=== PATIENT | male | born 1970 | race Two or more races ===

== ENCOUNTER 2024-12-16 11:30 | Emergency (ER) | payer OTHER ==
[~2024-12-16] VITALS: Ht 165.1 cm; Wt 67.3 kg
[2024-12-16 13:15] VITALS: PULSE 80; RESP 16; O2SAT 100
--- NOTE | 2024-12-16 15:56 | ED.PDOC ---
GI ASSESSMENT HPI Comments 54Y M with PMHx DM, HTN, and hemorrhoids presents to ED for chief complaint rectal bleeding x1week with constipation. LBM either yesterday or this morning. Pt states he has been seeing blood in his stool for the last week. Pt had colonoscopy performed 2 years ago. Per pt, results of colonoscopy were negative. No other symptoms reported. Chief Complaint: GI Bleed Time Seen by MD: 15:20 Primary Care Provider: NA Reviewed Notes: Nurses Notes, Medications, Allergies Allergies: Coded Allergies: NO KNOWN ALLERGIES (Unverified , 12/16/24) Home Meds Active Scripts Polyethylene Glycol 3350 (Miralax Mix-in [place]) 17 Gm Pow, 17 GM PO DAILY for 14 Days, #238 GM Prov:JASMEET GRISSOM MD 12/16/24 Information Source: Patient Mode of Arrival: Ambulatory Timing: Weeks Duration: Intermittent Quality: None Vomitus: None Stool: Hemorrhoids, Blood Streaked Severity: Mild Recent: None Recent Hx of: None Pain Location: None Modifying Factors: Nothing Associated sign and symptoms: Blood in Stool Past Medical History PAST MEDICAL HISTORY: DM, HTN Past Medical History (Other): hemorrhoids Surgical History: Denies all surgeries Family History Family History: Unknown Social History Smoker: Non-Smoker Alcohol: Denies ETOH Use Drugs: Denies Drug Use Lives In: Home Constitutional: denies: chills, diaphoresis, fatigue, fever, malaise, sweats, weakness, others EENTM: denies: blurred vision, double vision, ear bleeding, ear discharge, ear drainage, ear pain, ear ringing, eye pain, eye redness, hearing loss, mouth pain, mouth swelling, nasal discharge, nose bleeding, nose congestion, nose pa in, photophobia, tearing, throat pain, throat swelling, voice changes, others Respiratory: denies: cough, hemoptysis, orthopnea, SOB at rest, shortness of breath, SOB with excertion, stridor, wheezing, others Cardiovascular: denies: chest pain, dizzy spells, diaphoresis, Dyspnea on exertion, edema, irregular heart beat, left arm pain, lightheadedness, palpitations, PND, syncope, others Gastrointestinal: reports: constipated, rectal bleeding; denies: abdomen distended, abdominal pain, blood streaked bowels, diarrhea, dysphagia, difficulty swallowing, hematemesis, melena, nausea, poor appetite, poor fluid intake, rectal pain, vomiting, others Genitourinary: denies: burning, dysuria, flank pain, frequency, hematuria, incontinence, penile discharge, penile sore, pain, testicle pain, testicle swelling, urgency, others Neurological: denies: dizziness, fainting, headache, left sided numbness, left sided weakness, numbness, paresthesia, pre-existing deficit, right sided numbness, right sided weakness, seizure, speech problems, tingling, tremors, weakness, others Musculoskeletal: denies: back pain, gout, joint pain, joint swelling, muscle pain, muscle stiffness, neck pain, others Integumetry: denies: bruises, change in color, change in hair/nails, dryness, laceration, lesions, lumps, rash, wounds, others Allergic/Immunocompromised: denies: Difficulty Healing, Frequent Infections, Hives, Itching, others Hematologic/Lymphatic: denies: anemia, blood clots, easy bleeding, easy bruising, swollen glands, others Endocrine: denies: excessive hunger, excessive sweating, excessive thirst, excessive urination, flushing, intolerance to cold, intolerance to heat, unexplained weight gain, unexplained weight loss, others Psychiatric: denies: anxiety, bipolar disorder, depression, hopeless, panic disorder, schizophrenia, sleepless, suicidal, others All Other Systems: Reviewed and Negative Physical Exam General Appearance: No Apparent Distress, Normal HEENT: Normal ENT Inspection, Pharynx Normal, TMs Normal Neck: Full Range of Motion, Non-Tender, Normal, Normal Inspection Respiratory: Chest Non-Tender, Lungs Clear, No Accessory Muscle Use, No Respiratory Distress, Normal Breath Sounds Cardiovascular: No Edema, No JVD, No Murmur, No Gallop, Normal Peripheral Pulses, Regular Rate/Rhythm Breast Exam: Deferred Gastrointestinal: No Organomegaly, Non Tender, No Pulsatile Mass, Normal Bowel Sounds, Soft Genitalia: Deferred Pelvic: Deferred Rectal: Other (Multiple external hemorrhoids with dried blood, no active bleeding, no fissures, brown stool on HUS[place]IN) Extremities: No calf tenderness, Normal capillary refill, Normal inspection, Normal range of motion, Non-tender, No pedal edema Musculoskeletal : Apperance: Normal Neurologic: Alert, skilled nursing case manager II-XII nml as Tested, No Motor Deficits, Normal Affect, Normal Mood, No Sensory Deficits Cerebellar Function: Normal Reflexes: Normal Skin: Dry, Normal Color, Warm Lymphatic: No Adenopathy Was a procedure done? Was a procedure done?: No GI differential Dx Differential Diagnosis: Other (Internal hemorrhoid, external hemorrhoid, thrombosed hemorrhoid, anal fissure, rectal abscess, upper GI bleed, lower GI bleed, hemorrhagic shock) X-Ray, Labs, Meds, VS Vital Signs Date Time Temp Pulse Resp B/P (MAP) Pulse Ox O2 Delivery O2 Flow Rate FiO2 12/16/24 17:51 98.0 60 20 145/100 (115) 100 98.0 12/16/24 15:28 98.3 75 18 148/73 (98) 100 98.3 12/16/24 13:15 98.0 80 16 148/109 (122) 100 98.0 12/16/24 13:15 80 16 100 Room Air* 0 21 12/16/24 11:50 98.0 83 20 149/102 (118) 98 Lab Test 12/16/24 17:15 Range/Units White Blood Count 6.0 4.4-10.8 10^3/uL Red Blood Count 5.28 4.5-5.90 10^6/uL Hemoglobin 15.8 13.5-17.5 g/dL Hematocrit 45.5 41.0-53.0 % Mean Corpuscular Volume 86.1 80.0-100.0 fL Mean Corpuscular Hemoglobin 29.9 28.0-32.0 pg Mean Corpuscular Hemoglobin Concent 34.7 32.0-36.0 g/dL Red Cell Distribution Width 13.6 11.8-14.3 % Platelet Count 170 140-450 10^3/uL Mean Platelet Volume 8.8 6.9-10.8 fL Neutrophils (%) (Auto) 71.5 37.0-80.0 % Lymphocytes (%) (Auto) 15.2 10.0-50.0 % Monocytes (%) (Auto) 9.3 0.0-12.0 % Eosinophils (%) (Auto) 3.0 0.0-7.0 % Basophils (%) (Auto) 1.0 0.0-2.0 % Neutrophils # (Auto) 4.3 1.6-8.6 10 ^3/uL Lymphocytes # (Auto) 0.9 0.4-5.4 10 ^3/uL Monocytes # (Auto) 0.6 0-1.3 10 ^3/uL Eosinophils # (Auto) 0.2 0-0.8 10 ^3/uL Basophils # (Auto) 0.1 0-0.2 10 ^3/uL Nucleated Red Blood Cells 0.1 % Sodium Level 136 136-145 mmol/L Potassium Level 4.4 3.5-5.1 mmol/L Chloride Level 105 98-107 mmol/L Carbon Dioxide Level 23 20-31 mmol/L Anion Gap 8 5-15 Blood Urea Nitrogen 12 9-23 mg/dL Creatinine 1.03 0.700-1.30 mg/dL Glomerular Filtration Rate Calc 85 >90 mL/min BUN/Creatinine Ratio 11.7 10.0-20.0 Serum Glucose 284 H 74-106 mg/dL Calcium Level 10.1 8.7-10.4 mg/dL X-Ray, Labs, Meds, VS Comment 54-year-old male here today with complaints of rectal bleeding in the setting of known hemorrhoids. Vital signs stable, afebrile. Physical exam as above without any acute findings aside from external hemorrhoids with evidence of dried blood, no active bleeding, brown stool. I discussed with the patient the importance of avoiding constipation or straining while using the restroom and he states that he does both of these things. I instructed the patient on maintaining a good diet with plenty of fiber, drink plenty of water, and also prescribed the patient MiraLax and instructed him to use Metamucil [id number]. Patient was also given strict return precautions for persistent bleeding, lightheadedness, chest pain, shortness of breath, any other concerning symptoms. Patient expressed understanding and was discharged home in stable condition ambulating with a steady gait in no distress. Time of 1ST Reevaluation: 15:50 Reevaluation 1ST: Unchanged Patient Education/Counseling: Diagnosis, Treatment, Prognosis, Need For Follow Up Family Education/Counseling: No Family Present Departure 1 Departure Time of Disposition: 18:35 Impression: Primary Impression: External hemorrhoids Additional Impression: Constipation Disposition: 01 HOME / SELF CARE / HOMELESS Condition: Stable e-Prescriptions Polyethylene Glycol 3350 (Miralax Mix-in [place]) 17 Gm Pow 17 GM PO DAILY for 14 Days, #238 GM Prov: JASMEET GRISSOM MD 12/16/24 Discharged With: Self Critical Care Note Critical Care Time?: No Stability Stability form required: No Heart Score Heart Score: Heart Score Response (Comments) Value History N/A 0 EKG N/A 0 Age N/A 0 Risk Factors N/A 0 Troponin N/A 0 Total 0 I personally scribed for JASMEET GRISSOM MD ([email or web address]) on 12/16/24 at 15:56. Electronically submitted by Florencia Jay ([email or web address]). I personally scribed for JASMEET GRISSOM MD ([email or web address]) on 12/16/24 at 16:15. Electronically submitted by Florencia Jay ([email or web address]). JASMEET GRISSOM MD Dec 16, 2024 15:56
[2024-12-16 17:27] LABS: Basophils # (auto) 0.1 10 ^3/uL (0-0.2); Eosinophils # (auto) 0.2 10 ^3/uL (0-0.8); Hematocrit 45.5 % (41.0-53.0); Hemoglobin 15.8 g/dL (13.5-17.5); Lymphocytes # (auto) 0.9 10 ^3/uL (0.4-5.4); Lymphocytes % (auto) 15.2 % (10.0-50.0); Mean Corpuscular Hemoglobin 29.9 pg (28.0-32.0); Mean Corpuscular Hgb Conc. 34.7 g/dL (32.0-36.0); Mean Corpuscular Volume 86.1 fL (80.0-100.0); Monocytes # (auto) 0.6 10 ^3/uL (0-1.3); Monocytes % (auto) 9.3 % (0.0-12.0); Neutrophils # (auto) 4.3 10 ^3/uL (1.6-8.6); Neutrophils % (auto) 71.5 % (37.0-80.0); Nucleated Red Blood Cells % 0.1 %; Platelet Count (auto) 170 10^3/uL (140-450); Red Blood Cells 5.28 10^6/uL (4.5-5.90); Red Cell Distribution Width 13.6 % (11.8-14.3)
[2024-12-16 17:39] LABS: Chloride 105 mmol/L (98-107); Potassium 4.4 mmol/L (3.5-5.1); Sodium 136 mmol/L (136-145)
[2024-12-16 17:40] LABS: Anion Gap 8 (5-15); Carbon Dioxide 23 mmol/L (20-31)
[2024-12-16 17:41] LABS: Calcium 10.1 mg/dL (8.7-10.4)
[2024-12-16 17:45] LABS: BUN/Creatinine Ratio 11.7 (10.0-20.0); Blood Urea Nitrogen 12 mg/dL (9-23)
[2024-12-16 17:51] VITALS: BP 145/100; PULSE 60; RESP 20; TEMP 98; O2SAT 100
[2024-12-16 18:13] LABS: Glucose 284 mg/dL (74-106)
[2024-12-16] MEDS ORDERED: POLY17PO5 PO (18:31)
== END 2024-12-16 18:53 | disposition home or self-care (01) ==
LOC: ER 11:30
DX: K64.4 Residual hemorrhoidal skin tags (principal); K59.00 Constipation, unspecified; E11.9 Type 2 diabetes mellitus without complications; I10 Essential (primary) hypertension; Z98.890 Other specified postprocedural states
CPT/HCPCS: 36415; 80048; 85025